=== PATIENT | female | born 1960 | race African-American/Black ===

== ENCOUNTER 2016-11-28 16:59 | Inpatient (IN) | payer MEDICAID ==
[~2016-11-28] VITALS: Ht 172.7 cm; Wt 64.4 kg
[~2016-11-28 16:59] MED LIST: NICO1PAT15 TP
[2016-11-28] MEDS ORDERED: SODIUM CHLORIDE 0.9% 1,000 ML IV ONE ×2 (17:20→18:49)
[2016-11-28 18:08] LABS: BASOPHILS % 0.6 % (0.0-2.0); EOSINOPHILS % 1.7 % (0.0-5.0); HEMATOCRIT. 37.3 % (36.0-48.0); HEMOGLOBIN. 12.7 g/dL (12.0-16.0); LYMPHOCYTES % 44.8 % (20.0-50.0); MEAN CORPUSCULAR HEMOGLOBIN 33.1 pg (28.0-32.0); MEAN CORPUSCULAR VOLUME 97.3 fL (81.0-99.0); NEUTROPHILS % 45.9 % (40.0-76.0); PLATELET 263 x1000/uL (130-400); RED BLOOD CELL COUNT 3.83 mill/uL (4.2-5.4); RED CELL DISTRIBUTION WIDTH 15.3 % (11.6-14.6)
[2016-11-28 18:15] LABS: CHLORIDE 107 mEq/L (98-107)
[2016-11-28 18:17] LABS: CARBON DIOXIDE 23 mEq/L (21-32)
[2016-11-28 18:18] LABS: INR 1.1; PROTHROMBIN TIME 11.2 sec (9.4-11.6)
[2016-11-28 18:23] LABS: CREATINE KINASE 91 IU/L (26-192); TROPONIN I < 0.02 ng/mL (0.00-0.04)
[2016-11-28 19:05] LABS: ETHANOL BLOOD 226 mg/dL
[2016-11-28 22:08] VITALS: BP 139/70
[2016-11-28 22:44] VITALS: BP 139/70
[2016-11-28 23:56] LABS: CREATINE KINASE MB FRACTION 0.9 ng/mL (0.5-3.6); TROPONIN I < 0.02 ng/mL (0.00-0.04)
[2016-11-29] VITALS (8 sets, daily range): BP systolic 101–162; BP diastolic 65–111
[2016-11-29 06:42] LABS: CLARITY URINE CLEAR (CLEAR); COLOR URINE YELLOW (YELLOW); GLUCOSE URINE NEGATIVE (NEGATIVE); KETONES URINE NEGATIVE (NEGATIVE); LEUKOCYTE ESTERASE URINE NEGATIVE (NEGATIVE); NITRITE URINE NEGATIVE (NEGATIVE); OCCULT BLOOD URINE NEGATIVE (NEGATIVE); PROTEIN URINE NEGATIVE (NEGATIVE); SPECIFIC GRAVITY URINE 1.006 (1.005-1.030); UROBILINOGEN URINE 0.2 E.U./dL (0.2-1.0)
[2016-11-29 06:57] LABS: *AMPHETAMINES SCREEN URINE NEGATIVE (NEGATIVE); *BARBITURATES SCREEN URINE NEGATIVE (NEGATIVE); *BENZODIAZEPINES SCREEN URINE NEGATIVE (NEGATIVE); *COCAINE SCREEN URINE NEGATIVE (NEGATIVE); CANNABINOID URINE SCREEN PRESUMTIVE POSITIVE (NEGATIVE); METHADONE URINE SCREEN NEGATIVE (NEGATIVE); OPIATES URINE SCREEN NEGATIVE (NEGATIVE); PHENCYCLIDINE URINE SCREEN NEGATIVE (NEGATIVE)
[2016-11-29 09:14] LABS: BASOPHILS % 1.3 % (0.0-2.0); EOSINOPHILS % 0.9 % (0.0-5.0); HEMATOCRIT. 38.9 % (36.0-48.0); HEMOGLOBIN. 13.1 g/dL (12.0-16.0); LYMPHOCYTES % 29.6 % (20.0-50.0); MEAN CORPUSCULAR HEMOGLOBIN 32.5 pg (28.0-32.0); MEAN CORPUSCULAR VOLUME 96.8 fL (81.0-99.0); MEAN PLATELET VOLUME 8.6 fl (7.4-10.4); MONOCYTES % 6.9 % (2.0-8.0); NEUTROPHILS % 61.3 % (40.0-76.0); PLATELET 238 x1000/uL (130-400); RED BLOOD CELL COUNT 4.02 mill/uL (4.2-5.4); RED CELL DISTRIBUTION WIDTH 14.7 % (11.6-14.6)
[2016-11-29 09:39] LABS: CARBON DIOXIDE 26 mEq/L (21-32); CHLORIDE 104 mEq/L (98-107); CREATINE KINASE MB FRACTION 0.9 ng/mL (0.5-3.6); TROPONIN I < 0.02 ng/mL (0.00-0.04)
[2016-11-29] MEDS ORDERED: FOLI-43 PO (10:17)
[2016-11-29] MEDS ORDERED: CYAN10009 PO (10:18)
[2016-11-29] MEDS ORDERED: LORAZEPAM 0.5MG TABLET PO PRN (14:30)
[2016-11-29] MEDS ORDERED: ACETAMINOPHEN 325MG TABLET PO PRN (14:30)
[2016-11-29] MEDS ORDERED: DOCUSATE SODIUM 100MG CAPSULE PO PRN (14:30)
[2016-11-29] MEDS ORDERED: IPRATROPIUM/ALBUTEROL 0.5-3(2.5)MG/3ML NEB INH PRN (14:30)
[2016-11-29] MEDS ORDERED: CLONIDINE 0.1MG TABLET PO PRN (14:30)
[2016-11-29] MEDS ORDERED: ONDANSETRON HCL 4MG/2ML VIAL IV PRN (14:30)
[2016-11-29] MEDS ORDERED: HYDROCODONE/ACETAMINOPHEN 5/325MG TABLET PO PRN (14:30)
[2016-11-29] MEDS ORDERED: MAGNESIUM/ALUMINUM HYDROXIDE/SIMETHICONE 30ML UDC PO PRN (14:30)
[2016-11-29 15:54] LABS: HEPATITIS B SURFACE ANTIGEN NEGATIVE
[2016-11-29 16:22] LABS: HEPATITIS B CORE AB IGM NEGATIVE
[2016-11-29 16:24] LABS: HEPATITIS A AB IGM NEGATIVE (NEGATIVE)
[2016-11-29] MEDS ORDERED: MVI, ADULT NO.1 10 ML, FOLIC ACID 1 MG, THIAMINE HCL 100 MG in SODIUM CHLORIDE 0.9% 1,0... IV NR ×4 (16:30)
[2016-11-29 16:50] LABS: CARBON DIOXIDE 29 mEq/L (21-32); CHLORIDE 103 mEq/L (98-107)
[2016-11-29] MEDS: NICOTINE 21MG PATCH TD SCH (17:15)
[2016-11-29] MEDS: SODIUM CHLORIDE 0.9% INJ 3ML FLUSH IVF SCH ×2 (18:09→21:41)
[2016-11-29 22:03] LABS: CREATINE KINASE 115 IU/L (26-192); CREATINE KINASE MB FRACTION 1.3 ng/mL (0.5-3.6); TROPONIN I < 0.02 ng/mL (0.00-0.04)
[2016-11-30] VITALS: BP 112/79
[2016-11-30 04:00] VITALS: BP 108/76
[2016-11-30] MEDS: SODIUM CHLORIDE 0.9% INJ 3ML FLUSH IVF SCH ×3 (05:05→21:20)
[2016-11-30 08:00] VITALS: BP_SYST 111; BP_SYST 118; BP_SYST 135; BP_DIAS 81; BP_DIAS 85
[2016-11-30 08:51] LABS: BASOPHILS % 0.5 % (0.0-2.0); HEMATOCRIT. 37.9 % (36.0-48.0); HEMOGLOBIN. 12.9 g/dL (12.0-16.0); LYMPHOCYTES % 29.9 % (20.0-50.0); MEAN CORPUSCULAR HEMOGLOBIN 32.9 pg (28.0-32.0); MEAN CORPUSCULAR VOLUME 96.5 fL (81.0-99.0); MEAN PLATELET VOLUME 8.5 fl (7.4-10.4); MONOCYTES % 9.3 % (2.0-8.0); NEUTROPHILS % 59.3 % (40.0-76.0); PLATELET 217 x1000/uL (130-400); RED BLOOD CELL COUNT 3.93 mill/uL (4.2-5.4); RED CELL DISTRIBUTION WIDTH 14.6 % (11.6-14.6)
[2016-11-30] MEDS: MULTIVITAMINS,THER W-MINERALS TABLET PO SCH (08:56)
[2016-11-30] MEDS: THIAMINE HCL 100MG TABLET PO SCH (08:57)
[2016-11-30] MEDS: FOLIC ACID 1MG TABLET PO SCH (08:57)
[2016-11-30] MEDS: NICOTINE 21MG PATCH TD SCH (08:57)
[2016-11-30] MEDS: CYANOCOBALAMIN 1000MCG TABLET PO SCH (08:57)
[2016-11-30 09:24] LABS: CREATINE KINASE 113 IU/L (26-192); LDL CHOLESTEROL 121 mg/dL (5-100); TROPONIN I < 0.02 ng/mL (0.00-0.04)
[2016-11-30 09:25] LABS: CREATINE KINASE MB FRACTION 1.3 ng/mL (0.5-3.6); HDL CHOLESTEROL 32 mg/dL (40-59)
[2016-11-30 12:00] VITALS: BP 126/77
[2016-11-30] MEDS: SODIUM CHLORIDE 0.9% 1,000 ML IV SCH ×2 (14:51→23:19)
[2016-11-30 20:00] VITALS: BP 128/82
[2016-12-01] VITALS: BP 132/84
[2016-12-01 04:00] VITALS: BP 105/68
[2016-12-01] MEDS: SODIUM CHLORIDE 0.9% INJ 3ML FLUSH IVF SCH ×2 (06:03→13:18)
[2016-12-01 07:03] LABS: BASOPHILS % 0.6 % (0.0-2.0); EOSINOPHILS % 2.4 % (0.0-5.0); HEMATOCRIT. 33.2 % (36.0-48.0); HEMOGLOBIN. 11.2 g/dL (12.0-16.0); LYMPHOCYTES % 40.4 % (20.0-50.0); MEAN CORPUSCULAR HEMOGLOBIN 32.9 pg (28.0-32.0); MEAN CORPUSCULAR VOLUME 97.3 fL (81.0-99.0); NEUTROPHILS % 48.6 % (40.0-76.0); PLATELET 187 x1000/uL (130-400); RED BLOOD CELL COUNT 3.41 mill/uL (4.2-5.4); RED CELL DISTRIBUTION WIDTH 14.4 % (11.6-14.6)
[2016-12-01 07:36] LABS: CHLORIDE 110 mEq/L (98-107)
[2016-12-01 07:47] LABS: CARBON DIOXIDE 25 mEq/L (21-32)
[2016-12-01 08:00] VITALS: BP 131/84
[2016-12-01] MEDS: THIAMINE HCL 100MG TABLET PO SCH (09:41)
[2016-12-01] MEDS: MULTIVITAMINS,THER W-MINERALS TABLET PO SCH (09:41)
[2016-12-01] MEDS: NICOTINE 21MG PATCH TD SCH (09:41)
[2016-12-01] MEDS: FOLIC ACID 1MG TABLET PO SCH (09:41)
[2016-12-01] MEDS: CYANOCOBALAMIN 1000MCG TABLET PO SCH (09:41)
[2016-12-01] MEDS ORDERED: POTASSIUM CHLORIDE 20MEQ TABLET SR PO SCH (11:00)
[2016-12-01] MEDS: SODIUM CHLORIDE 0.9% 1,000 ML IV SCH (11:34)
[2016-12-01] MEDS ORDERED: FOLI-43 PO (11:40)
[2016-12-01] MEDS ORDERED: MULT-1146 PO (11:40)
[2016-12-01] MEDS ORDERED: THIA100T72 PO (11:40)
[2016-12-01 12:00] VITALS: BP 142/96
[2016-12-01] MEDS: MAGNESIUM 1 G PREMIX 100 ML IV SCH ×2 (13:18→13:59)
[2016-12-01] MEDS ORDERED: MAGNESIUM OXIDE 400MG TABLET PO SCH (14:00)
[2016-12-01 15:49] VITALS: BP 131/84
[2016-12-01 16:00] VITALS: BP 132/86
== END 2016-12-01 16:55 | disposition home or self-care (01) | DRG 720 ==
LOC: ER 17:07 → 5WST 19:09 → EDBEDREQTM 19:10 → EDBEDREQ 19:10 → ENRESERV 20:52
PROVIDERS: ADMIT Internal Medicine; ATTEND Internal Medicine
DX: A41.9 Sepsis, unspecified organism (principal); E87.2 Acidosis; F10.129 Alcohol abuse with intoxication, unspecified; E44.1 Mild protein-calorie malnutrition; I10 Essential (primary) hypertension; F12.90 Cannabis use, unspecified, uncomplicated; E86.0 Dehydration; F17.210 Nicotine dependence, cigarettes, uncomplicated; I95.1 Orthostatic hypotension; K70.9 Alcoholic liver disease, unspecified; Y90.8 Blood alcohol level of 240 mg/100 ml or more; Z79.899 Other long term (current) drug therapy; I25.2 Old myocardial infarction; Z71.41 Alcohol abuse counseling and surveillance of alcoholic; Z71.6 Tobacco abuse counseling; Z68.21 Body mass index [BMI] 21.0-21.9, adult; G62.9 Polyneuropathy, unspecified
CPT/HCPCS: 36415; 70450; 71010; 80048; 80053; 80061; 80076; 80305; 81003; 82550; 82553; 83605; 83690; 83735; 84443; 84484; 85025; 85610; 86705; 86709; 86803; 87040; 87340; 93005; 93306; 93880; 93970; 96360; 99285; G0482; J3411; J3475; J3490; J7030

== ENCOUNTER 2019-01-27 18:13 | Inpatient (IN) | payer MEDICAID ==
[~2019-01-27] VITALS: Ht 162.6 cm; Wt 60.8 kg
[~2019-01-27 18:13] MED LIST changes: +CYAN-50 PO; +FOLI-43 PO; +MULT-1146 PO; +THIA100T72 PO
[2019-01-27] MEDS ORDERED: KETOROLAC 30MG/ML VIAL IV STA (19:38)
[2019-01-27 20:28] LABS: BASOPHILS % 1.2 % (0.0-2.0); EOSINOPHILS % 0.3 % (0.0-5.0); HEMATOCRIT. 36.2 % (36.0-48.0); LYMPHOCYTES % 32.8 % (20.0-50.0); MEAN CORPUSCULAR HEMOGLOBIN 33.5 pg (28.0-32.0); MEAN CORPUSCULAR VOLUME 100.6 fL (81.0-99.0); MEAN PLATELET VOLUME 9.1 fl (7.4-10.4); MONOCYTES % 5.9 % (2.0-8.0); NEUTROPHILS % 59.8 % (40.0-76.0); PLATELET 264 x1000/uL (130-400); RED BLOOD CELL COUNT 3.59 mill/uL (4.2-5.4); RED CELL DISTRIBUTION WIDTH 15.8 % (11.6-14.6)
[2019-01-27 20:31] LABS: CHLORIDE 102 mEq/L (98-107)
[2019-01-28] VITALS (7 sets, daily range): BP systolic 104–147; BP diastolic 53–93
[2019-01-28] MEDS ORDERED: CLONIDINE 0.1MG TABLET PO PRN (08:45)
[2019-01-28] MEDS ORDERED: MAGNESIUM/ALUMINUM HYDROXIDE/SIMETHICONE 30ML UDC PO PRN (08:45)
[2019-01-28] MEDS ORDERED: DIPHENHYDRAMINE 50MG/ML VIAL IV PRN (08:45)
[2019-01-28] MEDS ORDERED: ONDANSETRON HCL 4MG/2ML INJ IV PRN (08:45)
[2019-01-28] MEDS ORDERED: GUAIFENESIN 200MG/10ML SUGAR FREE UDC PO PRN (08:45)
[2019-01-28] MEDS ORDERED: DOCUSATE SODIUM 100MG CAPSULE PO PRN (08:45)
[2019-01-28] MEDS ORDERED: IPRATROPIUM/ALBUTEROL 0.5-3(2.5)MG/3ML NEB HHN PRN (08:45)
[2019-01-28] MEDS ORDERED: PNEUMOCOCCAL 23-VAL P-SAC VAC 0.5 ML IM ONE (09:00)
[2019-01-28 10:57] LABS: PHOSPHORUS 2.3 mg/dL (2.5-4.9)
[2019-01-28] MEDS: ENOXAPARIN 40MG/0.4ML SYR SUBCUT SCH (12:10)
[2019-01-28] MEDS: SODIUM CHLORIDE 0.9% 1,000 ML IV SCH (12:11)
[2019-01-28] MEDS: KETOROLAC 30MG/ML VIAL IV PRN (15:13)
[2019-01-28] MEDS: OMEPRAZOLE 20MG CAPSULE EXTENDED RELEASE PO SCH (20:33)
[2019-01-28 21:45] LABS: VITAMIN B12 SERUM 931 pg/mL (211-911)
[2019-01-29 00:01] VITALS: BP 119/78
[2019-01-29] MEDS: SODIUM CHLORIDE 0.9% 1,000 ML IV SCH ×2 (01:15→17:55)
[2019-01-29 04:00] VITALS: BP 152/72
[2019-01-29] MEDS: OMEPRAZOLE 20MG CAPSULE EXTENDED RELEASE PO SCH ×2 (06:25→21:49)
[2019-01-29 06:40] LABS: BASOPHILS % 0.8 % (0.0-2.0); EOSINOPHILS % 0.2 % (0.0-5.0); HEMATOCRIT. 31.4 % (36.0-48.0); HEMOGLOBIN. 10.4 g/dL (12.0-16.0); LYMPHOCYTES % 29.9 % (20.0-50.0); MEAN CORPUSCULAR HEMOGLOBIN 33.2 pg (28.0-32.0); MEAN CORPUSCULAR VOLUME 99.9 fL (81.0-99.0); MEAN PLATELET VOLUME 8.5 fl (7.4-10.4); MONOCYTES % 7.2 % (2.0-8.0); NEUTROPHILS % 61.9 % (40.0-76.0); PLATELET 261 x1000/uL (130-400); RED BLOOD CELL COUNT 3.14 mill/uL (4.2-5.4); RED CELL DISTRIBUTION WIDTH 15.4 % (11.6-14.6)
[2019-01-29 07:18] LABS: CHLORIDE 106 mEq/L (98-107)
[2019-01-29 07:53] LABS: LDL CHOLESTEROL 92 mg/dL (5-100)
[2019-01-29 07:54] LABS: HDL CHOLESTEROL 33 mg/dL (40-59)
[2019-01-29 08:00] VITALS: BP 137/99
[2019-01-29] MEDS: ENOXAPARIN 40MG/0.4ML SYR SUBCUT SCH (08:57)
[2019-01-29 12:00] VITALS: BP 131/79
[2019-01-29] MEDS: METOCLOPRAMIDE HCL 10MG/2ML VIAL IV SCH ×2 (14:06→18:17)
[2019-01-29] MEDS: KETOROLAC 30MG/ML VIAL IV PRN (14:17)
[2019-01-29 16:00] VITALS: BP 131/79
[2019-01-29 20:00] VITALS: BP 126/89
[2019-01-30] VITALS: BP 121/83
[2019-01-30] MEDS: ACETAMINOPHEN 325MG TABLET PO PRN ×2 (00:57→01:12)
[2019-01-30] MEDS: METOCLOPRAMIDE HCL 10MG/2ML VIAL IV SCH ×4 (01:12→17:08)
[2019-01-30 04:00] VITALS: BP 142/90
[2019-01-30] MEDS: OMEPRAZOLE 20MG CAPSULE EXTENDED RELEASE PO SCH ×2 (05:47→20:57)
[2019-01-30 06:28] LABS: CHLORIDE 104 mEq/L (98-107)
[2019-01-30 06:36] LABS: BASOPHILS % 0.4 % (0.0-2.0); EOSINOPHILS % 0.4 % (0.0-5.0); HEMATOCRIT. 30.4 % (36.0-48.0); HEMOGLOBIN. 10.3 g/dL (12.0-16.0); LYMPHOCYTES % 31.3 % (20.0-50.0); MEAN CORPUSCULAR HEMOGLOBIN 33.7 pg (28.0-32.0); MEAN PLATELET VOLUME 8.7 fl (7.4-10.4); MONOCYTES % 5.7 % (2.0-8.0); NEUTROPHILS % 62.2 % (40.0-76.0); PLATELET 266 x1000/uL (130-400); RED BLOOD CELL COUNT 3.04 mill/uL (4.2-5.4); RED CELL DISTRIBUTION WIDTH 15.5 % (11.6-14.6)
[2019-01-30 08:00] VITALS: BP 127/91
[2019-01-30] MEDS: ENOXAPARIN 40MG/0.4ML SYR SUBCUT SCH (08:19)
[2019-01-30] MEDS: SODIUM CHLORIDE 0.9% 1,000 ML IV SCH ×2 (10:35→22:35)
[2019-01-30 12:00] VITALS: BP 119/81
[2019-01-30 16:00] VITALS: BP 111/69
[2019-01-30 20:00] VITALS: BP 134/93
[2019-01-30] MEDS: KETOROLAC 30MG/ML VIAL IV PRN (21:43)
[2019-01-31] VITALS: BP 145/97
[2019-01-31] MEDS: METOCLOPRAMIDE HCL 10MG/2ML VIAL IV SCH ×3 (00:31→11:00)
[2019-01-31 04:00] VITALS: BP 135/93
[2019-01-31] MEDS: OMEPRAZOLE 20MG CAPSULE EXTENDED RELEASE PO SCH (06:16)
[2019-01-31 06:30] LABS: CHLORIDE 106 mEq/L (98-107)
[2019-01-31 06:43] LABS: BASOPHILS % 0.4 % (0.0-2.0); EOSINOPHILS % 0.5 % (0.0-5.0); HEMATOCRIT. 31.6 % (36.0-48.0); HEMOGLOBIN. 10.4 g/dL (12.0-16.0); LYMPHOCYTES % 34.1 % (20.0-50.0); MEAN CORPUSCULAR HEMOGLOBIN 33.2 pg (28.0-32.0); MEAN CORPUSCULAR VOLUME 101.2 fL (81.0-99.0); MEAN PLATELET VOLUME 8.8 fl (7.4-10.4); MONOCYTES % 6.8 % (2.0-8.0); NEUTROPHILS % 58.2 % (40.0-76.0); PLATELET 261 x1000/uL (130-400); RED BLOOD CELL COUNT 3.13 mill/uL (4.2-5.4); RED CELL DISTRIBUTION WIDTH 15.6 % (11.6-14.6)
[2019-01-31 07:18] LABS: HEPATITIS B SURFACE ANTIGEN NEGATIVE
[2019-01-31 07:47] LABS: HEPATITIS A AB IGM NEGATIVE (NEGATIVE)
[2019-01-31 08:00] VITALS: BP 143/82
[2019-01-31] MEDS: ENOXAPARIN 40MG/0.4ML SYR SUBCUT SCH (11:00)
[2019-01-31 12:00] VITALS: BP 116/48
[2019-01-31] MEDS ORDERED: OMEP20CA5 PO (13:56)
[2019-01-31] MEDS ORDERED: ONDA4TAB11 PO (14:01)
[2019-01-31 14:05] VITALS: BP 116/48
== END 2019-01-31 15:44 | disposition home or self-care (01) | DRG 249 ==
LOC: ER 18:13 → 8WST 21:02 → ENRESERV 22:30
PROVIDERS: ADMIT Internal Medicine; ATTEND Internal Medicine
DX: K52.9 Noninfective gastroenteritis and colitis, unspecified (principal); K70.9 Alcoholic liver disease, unspecified; E83.39 Other disorders of phosphorus metabolism; E11.9 Type 2 diabetes mellitus without complications; D75.89 Other specified diseases of blood and blood-forming organs; F17.200 Nicotine dependence, unspecified, uncomplicated; F10.10 Alcohol abuse, uncomplicated; K76.0 Fatty (change of) liver, not elsewhere classified; R07.9 Chest pain, unspecified; R74.0 Nonspecific elevation of levels of transaminase and lactic acid dehydrogenase [LDH]; Z79.899 Other long term (current) drug therapy; Z87.19 Personal history of other diseases of the digestive system
CPT/HCPCS: 36415; 71045; 74018; 76705; 80048; 80061; 80076; 82248; 82607; 83735; 83880; 84100; 84443; 84484; 86705; 86709; 86803; 87015; 87045; 87340; 87427; 87449; 89055; 93005; 93970; 96374; 99285; J1650; J1885; J2765; J7030

== ENCOUNTER 2021-01-23 06:53 | Inpatient (IN) | payer OTHER ==
[~2021-01-23] VITALS: Ht 172.7 cm; Wt 108.4 kg
[~2021-01-23 06:53] MED LIST changes: +OMEP20CA14 PO; +ONDA4TAB11 PO
[2021-01-23] MEDS ORDERED: ACETAMINOPHEN WITH CODEINE 300/30MG TABLET PO STA (07:22)
[2021-01-23 09:34] LABS: BASOPHILS % 0.3 % (0.0-2.0); EOSINOPHILS % 0.3 % (0.0-5.0); HEMATOCRIT. 30.1 % (36.0-48.0); HEMOGLOBIN. 9.8 g/dL (12.0-16.0); LYMPHOCYTES % 25.7 % (20.0-50.0); MEAN CORPUSCULAR HEMOGLOBIN 31.1 pg (28.0-32.0); MEAN CORPUSCULAR VOLUME 95.2 fL (81.0-99.0); MEAN PLATELET VOLUME 8.4 fl (7.4-10.4); MONOCYTES % 9.9 % (2.0-8.0); NEUTROPHILS % 63.8 % (40.0-76.0); PLATELET 415 x1000/uL (130-400); RED BLOOD CELL COUNT 3.16 mill/uL (4.2-5.4); RED CELL DISTRIBUTION WIDTH 16.2 % (11.6-14.6)
[2021-01-23 10:36] LABS: CHLORIDE 112 mEq/L (98-107)
[2021-01-23] MEDS ORDERED: ALBUTEROL (0.083%) 2.5MG/3ML NEB HHN ONE (11:15)
[2021-01-23] MEDS ORDERED: CALCIUM CHLORIDE 1GM/10ML SYR IV ONE (11:15)
[2021-01-23] MEDS ORDERED: SODIUM BICARBONATE 8.4% 1 MEQ/ML 50ML SYR IV ONE (11:15)
[2021-01-23] MEDS ORDERED: DEXTROSE 50% WATER 50ML SYRINGE IV ONE ×2 (11:15→13:00)
[2021-01-23] MEDS ORDERED: INSULIN REGULAR (HUMULIN R) 300UNITS/3ML VIAL IV ONE (11:15)
[2021-01-23 11:19] LABS: CLARITY URINE CLEAR (CLEAR); COLOR URINE YELLOW (YELLOW); KETONES URINE NEGATIVE (NEGATIVE); LEUKOCYTE ESTERASE URINE NEGATIVE (NEGATIVE); NITRITE URINE NEGATIVE (NEGATIVE); OCCULT BLOOD URINE NEGATIVE (NEGATIVE); PROTEIN URINE NEGATIVE (NEGATIVE); SPECIFIC GRAVITY URINE 1.008 (1.005-1.030); UROBILINOGEN URINE 0.2 E.U./dL (0.2-1.0)
[2021-01-23 19:33] LABS: CHLORIDE 110 mEq/L (98-107)
[2021-01-24 08:50] VITALS: BP 133/52
[2021-01-24] MEDS ORDERED: ATOR40TA70 MT (09:34)
[2021-01-24] MEDS ORDERED: OMEP40CA20 MT (09:34)
[2021-01-24] MEDS ORDERED: PANT40TA51 MT (09:34)
[2021-01-24] MEDS ORDERED: IPRATROPIUM/ALBUTEROL 0.5-3(2.5)MG/3ML NEB HHN PRN (09:45)
[2021-01-24] MEDS ORDERED: LORAZEPAM 0.5MG TABLET PO PRN (09:45)
[2021-01-24] MEDS ORDERED: ACETAMINOPHEN 325MG TABLET PO PRN ×2 (09:45)
[2021-01-24] MEDS ORDERED: CLONIDINE 0.1MG TABLET PO PRN (09:45)
[2021-01-24] MEDS ORDERED: HYDROCODONE/ACETAMINOPHEN 5/325MG TABLET PO PRN (09:45)
[2021-01-24] MEDS ORDERED: ONDANSETRON HCL 4MG/2ML INJ IV PRN (09:45)
[2021-01-24] MEDS ORDERED: DOCUSATE SODIUM 100MG CAPSULE PO PRN (09:45)
[2021-01-24 11:42] VITALS: BP 122/65
[2021-01-24] MEDS ORDERED: *PATIENT'S OWN MEDICATION STORAGE XX SCH (15:15)
[2021-01-24 16:14] VITALS: BP 125/68
[2021-01-24] MEDS ORDERED: OMEPRAZOLE 20MG CAPSULE EXTENDED RELEASE PO SCH (19:30)
[2021-01-24 20:27] LABS: CHLORIDE 108 mEq/L (98-107)
[2021-01-24 20:32] LABS: TOTAL IRON BINDING CAPACITY 416 ug/dL (250-450)
[2021-01-24 20:33] LABS: PHOSPHORUS 3.6 mg/dL (2.5-4.9)
[2021-01-24 20:38] LABS: T4 FREE 1.02 ng/dL (0.76-1.46)
[2021-01-24 20:49] LABS: FERRITIN 10 ng/mL (10-291)
[2021-01-24 21:00] LABS: VITAMIN B12 SERUM 407 pg/mL (211-911)
[2021-01-24] MEDS: PANTOPRAZOLE 40MG DR TABLET PO SCH (21:16)
[2021-01-24 21:17] LABS: FOLIC ACID (FOLATE) SERUM > 20.00 ng/mL (>5.38)
[2021-01-24] MEDS: MULTIVITAMINS,THER W-MINERALS TABLET PO SCH (21:17)
[2021-01-24] MEDS: CYANOCOBALAMIN 1000MCG TABLET PO SCH (21:17)
[2021-01-24] MEDS: FOLIC ACID 1MG TABLET PO SCH (21:17)
[2021-01-24] MEDS: THIAMINE HCL 100MG TABLET PO SCH (21:17)
[2021-01-24] MEDS: POLYETHYLENE GLYCOL 3350 (17GM) 1 DOSE PACK PO SCH (21:17)
[2021-01-24] MEDS ORDERED: NALOXONE HCL 0.4MG/ML VIAL IV PRN (22:00)
[2021-01-25] VITALS: BP_SYST 117; BP_SYST 126; BP_DIAS 72; BP_DIAS 77
[2021-01-25 04:00] VITALS: BP 115/67
[2021-01-25 07:38] LABS: CHLORIDE 109 mEq/L (98-107)
[2021-01-25 08:00] VITALS: BP 123/80
[2021-01-25] MEDS: FOLIC ACID 1MG TABLET PO SCH (08:53)
[2021-01-25] MEDS: MULTIVITAMINS,THER W-MINERALS TABLET PO SCH (08:53)
[2021-01-25] MEDS: CYANOCOBALAMIN 1000MCG TABLET PO SCH (08:53)
[2021-01-25] MEDS: PANTOPRAZOLE 40MG DR TABLET PO SCH (08:53)
[2021-01-25] MEDS: THIAMINE HCL 100MG TABLET PO SCH (08:53)
[2021-01-25] MEDS: POLYETHYLENE GLYCOL 3350 (17GM) 1 DOSE PACK PO SCH (08:55)
[2021-01-25] MEDS ORDERED: NICOTINE 14MG PATCH TD SCH (09:00)
[2021-01-25] MEDS ORDERED: IRON SUCROSE COMPLEX 100 MG/5 ML ML IV SCH (11:00)
[2021-01-25 12:00] VITALS: BP 124/82
[2021-01-25 15:36] LABS: BASOPHILS % 1.3 % (0.0-2.0); HEMATOCRIT. 30.7 % (36.0-48.0); HEMOGLOBIN. 9.6 g/dL (12.0-16.0); LYMPHOCYTES % 27.8 % (20.0-50.0); MEAN CORPUSCULAR HEMOGLOBIN 30.6 pg (28.0-32.0); MEAN CORPUSCULAR VOLUME 98.2 fL (81.0-99.0); MEAN PLATELET VOLUME 8.6 fl (7.4-10.4); MONOCYTES % 8.2 % (2.0-8.0); NEUTROPHILS % 61.7 % (40.0-76.0); PLATELET 395 x1000/uL (130-400); RED BLOOD CELL COUNT 3.13 mill/uL (4.2-5.4); RED CELL DISTRIBUTION WIDTH 16.2 % (11.6-14.6)
[2021-01-25 16:00] VITALS: BP 126/70
[2021-01-25 16:00] LABS: CLARITY URINE CLEAR (CLEAR); COLOR URINE YELLOW (YELLOW); KETONES URINE TRACE (NEGATIVE); LEUKOCYTE ESTERASE URINE NEGATIVE (NEGATIVE); NITRITE URINE NEGATIVE (NEGATIVE); OCCULT BLOOD URINE NEGATIVE (NEGATIVE); PH URINE 6.5 (4.5-8.0); PROTEIN URINE NEGATIVE (NEGATIVE); SPECIFIC GRAVITY URINE 1.017 (1.005-1.030); UROBILINOGEN URINE 0.2 E.U./dL (0.2-1.0)
[2021-01-25] MEDS ORDERED: FERR325T6 MT (16:08)
[2021-01-25 16:18] LABS: *AMPHETAMINES SCREEN URINE NEGATIVE (NEGATIVE); *BARBITURATES SCREEN URINE NEGATIVE (NEGATIVE); *BENZODIAZEPINES SCREEN URINE NEGATIVE (NEGATIVE); *COCAINE SCREEN URINE NEGATIVE (NEGATIVE); METHADONE URINE SCREEN NEGATIVE (NEGATIVE); OPIATES URINE SCREEN PRESUMTIVE POSITIVE (NEGATIVE)
[2021-01-25 16:19] LABS: CANNABINOID URINE SCREEN PRESUMTIVE POSITIVE (NEGATIVE); PHENCYCLIDINE URINE SCREEN NEGATIVE (NEGATIVE)
[2021-01-25 16:24] VITALS: BP 126/70
== END 2021-01-25 18:20 | disposition home or self-care (01) | DRG 425 ==
LOC: ER 06:53 → MICUSO 15:34 → EDBEDREQ 16:14 → 6WST 01-24 08:51
PROVIDERS: ADMIT Internal Medicine; ATTEND Internal Medicine
DX: E87.5 Hyperkalemia (principal); E11.649 Type 2 diabetes mellitus with hypoglycemia without coma; E11.40 Type 2 diabetes mellitus with diabetic neuropathy, unspecified; D64.9 Anemia, unspecified; E66.01 Morbid (severe) obesity due to excess calories; E78.5 Hyperlipidemia, unspecified; R74.01 Elevation of levels of liver transaminase levels; K76.0 Fatty (change of) liver, not elsewhere classified; E83.52 Hypercalcemia; F10.10 Alcohol abuse, uncomplicated; G89.29 Other chronic pain; I10 Essential (primary) hypertension; M48.061 Spinal stenosis, lumbar region without neurogenic claudication; Z82.49 Family history of ischemic heart disease and other diseases of the circulatory system; Z83.3 Family history of diabetes mellitus; Z79.899 Other long term (current) drug therapy; Z71.3 Dietary counseling and surveillance; Z68.36 Body mass index [BMI] 36.0-36.9, adult
CPT/HCPCS: 36415; 70551; 72141; 72146; 72148; 80048; 80053; 80305; 81003; 82330; 82607; 82728; 82746; 82962; 83036; 83540; 83550; 83735; 83970; 84100; 84133; 84439; 84443; 84481; 85025; 99291; C1893; J1815; J3490

== ENCOUNTER 2021-02-26 21:06 | Emergency (ER) | payer OTHER ==
[~2021-02-26] VITALS: Ht 167.6 cm; Wt 50.0 kg
[~2021-02-26 21:06] MED LIST changes: +FERR325T6 MT; -OMEP20CA14 PO; +PANT40TA51 MT
[2021-02-26 22:36] LABS: BASOPHILS % 0.3 % (0.0-2.0); EOSINOPHILS % 0.3 % (0.0-5.0); HEMATOCRIT. 37.7 % (36.0-48.0); HEMOGLOBIN. 11.8 g/dL (12.0-16.0); LYMPHOCYTES % 24.4 % (20.0-50.0); MEAN CORPUSCULAR HEMOGLOBIN 30.9 pg (28.0-32.0); MEAN CORPUSCULAR VOLUME 98.6 fL (81.0-99.0); MONOCYTES % 3.2 % (2.0-8.0); NEUTROPHILS % 71.8 % (40.0-76.0); PLATELET 302 x1000/uL (130-400); RED BLOOD CELL COUNT 3.83 mill/uL (4.2-5.4); RED CELL DISTRIBUTION WIDTH 18.2 % (11.6-14.6)
[2021-02-26 22:43] LABS: CHLORIDE 111 mEq/L (98-107)
[2021-02-26 22:54] LABS: CLARITY URINE CLEAR (CLEAR); COLOR URINE YELLOW (YELLOW); KETONES URINE NEGATIVE (NEGATIVE); LEUKOCYTE ESTERASE URINE NEGATIVE (NEGATIVE); NITRITE URINE NEGATIVE (NEGATIVE); OCCULT BLOOD URINE NEGATIVE (NEGATIVE); PROTEIN URINE NEGATIVE (NEGATIVE); SPECIFIC GRAVITY URINE 1.007 (1.005-1.030); UROBILINOGEN URINE 0.2 E.U./dL (0.2-1.0)
[2021-02-26 23:08] LABS: *BARBITURATES SCREEN URINE NEGATIVE (NEGATIVE)
[2021-02-26 23:09] LABS: *AMPHETAMINES SCREEN URINE NEGATIVE (NEGATIVE); *BENZODIAZEPINES SCREEN URINE NEGATIVE (NEGATIVE); *COCAINE SCREEN URINE NEGATIVE (NEGATIVE); METHADONE URINE SCREEN NEGATIVE (NEGATIVE); OPIATES URINE SCREEN NEGATIVE (NEGATIVE); PHENCYCLIDINE URINE SCREEN NEGATIVE (NEGATIVE)
[2021-02-26 23:10] LABS: CANNABINOID URINE SCREEN PRESUMTIVE POSITIVE (NEGATIVE)
[2021-02-27 01:14] VITALS: BP 156/72
== END 2021-02-27 01:39 | disposition home or self-care (01) ==
LOC: ER 21:06
DX: R53.1 Weakness (principal); E11.9 Type 2 diabetes mellitus without complications; I10 Essential (primary) hypertension; K92.2 Gastrointestinal hemorrhage, unspecified; Z79.899 Other long term (current) drug therapy
CPT/HCPCS: 36415; 80053; 80305; 81003; 84484; 85025; 93005; 99285

== ENCOUNTER 2021-05-21 13:12 | Inpatient (IN) | payer OTHER ==
[~2021-05-21] VITALS: Ht 165.1 cm; Wt 59.0 kg
[~2021-05-21 13:12] MED LIST changes: +METF-874 MT
[2021-05-21] MEDS ORDERED: naproxen (13:19)
[2021-05-21] MEDS ORDERED: FAMOTIDINE 20MG/2ML VIAL IV STA (13:23)
[2021-05-21] MEDS ORDERED: ONDANSETRON HCL 4MG/2ML INJ IV STA (13:23)
[2021-05-21] MEDS ORDERED: MORPHINE SULFATE 4 MG/ML CPJ (NOT FOR IM USE) IV STA (13:23)
[2021-05-21] MEDS ORDERED: SODIUM CHLORIDE 0.9% 1,000 ML IV ONE (13:30)
[2021-05-21 14:59] LABS: BASOPHILS % 0.7 % (0.0-2.0); CHLORIDE 88 mEq/L (98-107); EOSINOPHILS % 0.4 % (0.0-5.0); HEMATOCRIT. 30.9 % (36.0-48.0); HEMOGLOBIN. 10.6 g/dL (12.0-16.0); LYMPHOCYTES % 30.2 % (20.0-50.0); MEAN CORPUSCULAR VOLUME 93.1 fL (81.0-99.0); MONOCYTES % 6.3 % (2.0-8.0); NEUTROPHILS % 62.4 % (40.0-76.0); PLATELET 284 x1000/uL (130-400); RED BLOOD CELL COUNT 3.31 mill/uL (4.2-5.4); RED CELL DISTRIBUTION WIDTH 14.9 % (11.6-14.6)
[2021-05-21 15:05] LABS: ETHANOL BLOOD 120 mg/dL
[2021-05-21 19:22] LABS: CHLORIDE 92 mEq/L (98-107)
[2021-05-21] MEDS ORDERED: SODIUM POLYSTYRENE SULFONATE 15 G/60 ML BOT PO ONE (19:45)
[2021-05-21] MEDS ORDERED: MORPHINE SULFATE 4 MG/ML CPJ (NOT FOR IM USE) IV NR (20:30)
[2021-05-22 00:50] VITALS: BP 109/50
[2021-05-22] MEDS ORDERED: MAGNESIUM/ALUMINUM HYDROXIDE/SIMETHICONE 30ML UDC PO PRN (01:45)
[2021-05-22] MEDS ORDERED: GUAIFENESIN 200MG/10ML SUGAR FREE UDC PO PRN (01:45)
[2021-05-22] MEDS ORDERED: ACETAMINOPHEN 650MG SUPP PR PRN ×2 (01:45)
[2021-05-22] MEDS ORDERED: CLONIDINE 0.1MG TABLET PO PRN (01:45)
[2021-05-22] MEDS ORDERED: ACETAMINOPHEN 325MG TABLET PO PRN (01:45)
[2021-05-22] MEDS ORDERED: ONDANSETRON HCL 4MG/2ML INJ IV PRN (01:45)
[2021-05-22] MEDS ORDERED: LORAZEPAM 2MG/ML CPJ IV PRN (01:45)
[2021-05-22] MEDS ORDERED: IPRATROPIUM/ALBUTEROL 0.5-3(2.5)MG/3ML NEB HHN PRN (01:45)
[2021-05-22] MEDS ORDERED: MORPHINE SULFATE 2 MG/ML CPJ (NOT FOR IM USE) IV PRN (01:45)
[2021-05-22] MEDS ORDERED: DOCUSATE SODIUM 100MG CAPSULE PO PRN (01:45)
[2021-05-22] MEDS ORDERED: DIPHENHYDRAMINE 50MG/ML VIAL IV PRN (01:45)
[2021-05-22] MEDS ORDERED: NALOXONE HCL 0.4 MG/ML 1ML VIAL IV PRN (02:00)
[2021-05-22] MEDS: DEXT 5%/0.9% NACL 1,000 ML IV SCH ×2 (02:07→15:12)
[2021-05-22] MEDS ORDERED: CYPR4SYR PO (03:03)
[2021-05-22] MEDS ORDERED: AMYL1CAP59 PO (03:03)
[2021-05-22] MEDS ORDERED: THIA100T72 PO (03:03)
[2021-05-22] MEDS ORDERED: GLIP5TAB12 PO (03:03)
[2021-05-22] MEDS ORDERED: CHOL500051 PO (03:03)
[2021-05-22] MEDS ORDERED: *PATIENT'S OWN MEDICATION STORAGE XX SCH (03:15)
[2021-05-22 04:00] VITALS: BP 93/49
[2021-05-22 08:00] VITALS: BP 82/45
[2021-05-22 08:10] LABS: CLARITY URINE CLEAR (CLEAR); COLOR URINE YELLOW (YELLOW); KETONES URINE NEGATIVE (NEGATIVE); LEUKOCYTE ESTERASE URINE NEGATIVE (NEGATIVE); NITRITE URINE NEGATIVE (NEGATIVE); OCCULT BLOOD URINE NEGATIVE (NEGATIVE); PROTEIN URINE NEGATIVE (NEGATIVE); SPECIFIC GRAVITY URINE 1.007 (1.005-1.030); UROBILINOGEN URINE 0.2 E.U./dL (0.2-1.0)
[2021-05-22 09:20] LABS: *AMPHETAMINES SCREEN URINE NEGATIVE (NEGATIVE); *BARBITURATES SCREEN URINE NEGATIVE (NEGATIVE); CANNABINOID URINE SCREEN NEGATIVE (NEGATIVE)
[2021-05-22 09:22] LABS: *BENZODIAZEPINES SCREEN URINE NEGATIVE (NEGATIVE); *COCAINE SCREEN URINE NEGATIVE (NEGATIVE); METHADONE URINE SCREEN NEGATIVE (NEGATIVE)
[2021-05-22 09:27] LABS: OPIATES URINE SCREEN PRESUMTIVE POSITIVE (NEGATIVE); PHENCYCLIDINE URINE SCREEN NEGATIVE (NEGATIVE)
[2021-05-22 12:00] VITALS: BP 86/42
[2021-05-22 16:00] VITALS: BP 99/51
[2021-05-22 20:00] VITALS: BP 91/45
[2021-05-22] MEDS: ACETAMINOPHEN 325MG TABLET PO PRN (21:04)
[2021-05-23] VITALS: BP 97/50
[2021-05-23 04:00] VITALS: BP_SYST 104; BP_SYST 107; BP_DIAS 46
[2021-05-23] MEDS: DEXT 5%/0.9% NACL 1,000 ML IV SCH ×2 (04:54→17:45)
[2021-05-23] MEDS: ACETAMINOPHEN 325MG TABLET PO PRN (04:54)
[2021-05-23 06:20] LABS: BASOPHILS % 0.6 % (0.0-2.0); EOSINOPHILS % 2.4 % (0.0-5.0); HEMATOCRIT. 22.5 % (36.0-48.0); HEMOGLOBIN. 7.6 g/dL (12.0-16.0); LYMPHOCYTES % 33.4 % (20.0-50.0); MEAN CORPUSCULAR HEMOGLOBIN 31.6 pg (28.0-32.0); MEAN CORPUSCULAR VOLUME 94.1 fL (81.0-99.0); MEAN PLATELET VOLUME 8.1 fl (7.4-10.4); MONOCYTES % 9.1 % (2.0-8.0); NEUTROPHILS % 54.5 % (40.0-76.0); PLATELET 228 x1000/uL (130-400); RED BLOOD CELL COUNT 2.39 mill/uL (4.2-5.4); RED CELL DISTRIBUTION WIDTH 14.8 % (11.6-14.6)
[2021-05-23 06:57] LABS: CHLORIDE 106 mEq/L (98-107)
[2021-05-23 07:05] LABS: LDL CHOLESTEROL 69 mg/dL (5-100)
[2021-05-23 07:06] LABS: CREATINE KINASE 134 IU/L (26-192); HDL CHOLESTEROL 82 mg/dL (40-59)
[2021-05-23 07:55] VITALS: BP 98/47
[2021-05-23] MEDS ORDERED: HYDROCODONE/ACETAMINOPHEN 5/325MG TABLET PO PRN (09:15)
[2021-05-23 11:15] VITALS: BP 114/61
[2021-05-23 16:15] VITALS: BP 111/72
[2021-05-23] MEDS: PANTOPRAZOLE SODIUM 40 MG/VIAL IV SCH (18:36)
[2021-05-23 20:00] VITALS: BP 120/56
[2021-05-23 20:07] LABS: TOTAL IRON BINDING CAPACITY 241 ug/dL (250-450)
[2021-05-23 20:27] LABS: FOLIC ACID (FOLATE) SERUM 7.2 ng/mL (>5.38)
[2021-05-23 21:38] LABS: HEMOGLOBIN 7.2 g/dL (12.0-16.0)
[2021-05-23] MEDS ORDERED: POTASSIUM CHLORIDE 20MEQ TABLET SR PO NR (23:00)
[2021-05-24] VITALS (11 sets, daily range): BP systolic 107–142; BP diastolic 46–78
[2021-05-24 06:47] LABS: BASOPHILS % 0.4 % (0.0-2.0); EOSINOPHILS % 2.5 % (0.0-5.0); HEMATOCRIT. 28.2 % (36.0-48.0); HEMOGLOBIN. 9.5 g/dL (12.0-16.0); LYMPHOCYTES % 30.6 % (20.0-50.0); MEAN CORPUSCULAR HEMOGLOBIN 31.4 pg (28.0-32.0); MEAN CORPUSCULAR VOLUME 93.7 fL (81.0-99.0); MEAN PLATELET VOLUME 7.7 fl (7.4-10.4); MONOCYTES % 8.6 % (2.0-8.0); NEUTROPHILS % 57.9 % (40.0-76.0); PLATELET 231 x1000/uL (130-400); RED BLOOD CELL COUNT 3.01 mill/uL (4.2-5.4)
[2021-05-24] MEDS: DEXT 5%/0.9% NACL 1,000 ML IV SCH ×2 (06:48→21:06)
[2021-05-24 06:50] LABS: PROTHROMBIN TIME 10.3 sec (9.6-11.0)
[2021-05-24 07:23] LABS: CHLORIDE 108 mEq/L (98-107)
[2021-05-24] MEDS ORDERED: PROPOFOL 200MG/20ML VIAL IV ONE (10:04)
[2021-05-24] MEDS ORDERED: MIDAZOLAM HCL 5 MG/ML VIAL ONE (10:04)
[2021-05-24] MEDS ORDERED: LIDOCAINE HCL 1% 20ML VIAL (Pyxis) INJ ONE (10:05)
[2021-05-24] MEDS ORDERED: PANT40TA51 MT (11:21)
[2021-05-24] MEDS: PANTOPRAZOLE SODIUM 40 MG/VIAL IV SCH ×2 (11:25→17:38)
[2021-05-25] VITALS: BP 123/58
[2021-05-25 04:00] VITALS: BP 116/60
== END 2021-05-25 07:32 | disposition left against medical advice (07) | DRG 241 ==
LOC: ER 13:12 → 6WST 20:30 → EDBEDREQSVC 20:32 → EDBEDREQTM 20:32 → EDBEDREQ 20:32
PROVIDERS: ADMIT Internal Medicine; ATTEND Internal Medicine
PROC: 0DB78ZX Excision of Stomach, Pylorus, Via Natural or Artificial Opening Endoscopic, Diagnostic (ICD-10-PCS; principal; 2021-05-24)
PROC: 30233N1 Transfusion of Nonautologous Red Blood Cells into Peripheral Vein, Percutaneous Approach (ICD-10-PCS; 2021-05-24)
DX: K29.71 Gastritis, unspecified, with bleeding (principal); K85.90 Acute pancreatitis without necrosis or infection, unspecified; E44.0 Moderate protein-calorie malnutrition; E11.40 Type 2 diabetes mellitus with diabetic neuropathy, unspecified; E87.1 Hypo-osmolality and hyponatremia; K22.2 Esophageal obstruction; K57.11 Diverticulosis of small intestine without perforation or abscess with bleeding; K29.81 Duodenitis with bleeding; K22.6 Gastro-esophageal laceration-hemorrhage syndrome; E78.5 Hyperlipidemia, unspecified; Z53.29 Procedure and treatment not carried out because of patient's decision for other reasons; D50.0 Iron deficiency anemia secondary to blood loss (chronic); E87.5 Hyperkalemia; Z20.822 Contact with and (suspected) exposure to COVID-19; K44.9 Diaphragmatic hernia without obstruction or gangrene; E87.6 Hypokalemia; K86.1 Other chronic pancreatitis; K21.9 Gastro-esophageal reflux disease without esophagitis; K80.20 Calculus of gallbladder without cholecystitis without obstruction; I10 Essential (primary) hypertension; Z68.21 Body mass index [BMI] 21.0-21.9, adult; Z87.11 Personal history of peptic ulcer disease; Z82.49 Family history of ischemic heart disease and other diseases of the circulatory system; Z79.899 Other long term (current) drug therapy; I25.2 Old myocardial infarction; Z72.0 Tobacco use
CPT/HCPCS: 36415; 71045; 74176; 76700; 80048; 80053; 80061; 80076; 80305; 80320; 81003; 82270; 82550; 82607; 82728; 82746; 83540; 83550; 84443; 84484; 85018; 85025; 85044; 86850; 86900; 86920; 87426; 88305; 88312; 88313; 93005; 99285; C1893; C9113; J2250; J2270; J2405; J2704; J3490; J7030; J7040; J7042; J7070; P9016; G0480

== ENCOUNTER 2021-08-17 01:02 | Inpatient (IN) | payer MEDICARE, MEDICAID ==
[~2021-08-17] VITALS: Ht 167.6 cm; Wt 63.3 kg
[~2021-08-17 01:02] MED LIST changes: +AMYL1CAP59 PO; +CHOL500051 PO; +CYPR4SYR PO; +GLIP5TAB12 PO; +naproxen
[2021-08-17] MEDS ORDERED: MORPHINE SULFATE 4 MG/ML CPJ (NOT FOR IM USE) IV STA (01:25)
[2021-08-17 03:05] LABS: BASOPHILS % 0.6 % (0.0-2.0); EOSINOPHILS % 0.5 % (0.0-5.0); HEMATOCRIT. 34.1 % (36.0-48.0); HEMOGLOBIN. 11.4 g/dL (12.0-16.0); LYMPHOCYTES % 21.7 % (20.0-50.0); MEAN CORPUSCULAR HEMOGLOBIN 32.1 pg (28.0-32.0); MEAN CORPUSCULAR VOLUME 96.4 fL (81.0-99.0); MEAN PLATELET VOLUME 7.8 fl (7.4-10.4); MONOCYTES % 7.6 % (2.0-8.0); NEUTROPHILS % 69.6 % (40.0-76.0); PLATELET 332 x1000/uL (130-400); RED BLOOD CELL COUNT 3.54 mill/uL (4.2-5.4)
[2021-08-17 03:13] LABS: CHLORIDE 105 mEq/L (98-107)
[2021-08-17] MEDS ORDERED: MORPHINE SULFATE 4 MG/ML CPJ (NOT FOR IM USE) IV NR (04:30)
[2021-08-17 10:35] VITALS: BP 131/68
[2021-08-17] MEDS ORDERED: NALOXONE HCL 0.4MG/ML VIAL IV PRN (11:00)
[2021-08-17] MEDS ORDERED: ACETAMINOPHEN 325MG TABLET PO PRN ×2 (11:00)
[2021-08-17] MEDS ORDERED: DOCUSATE SODIUM 100MG CAPSULE PO PRN (11:00)
[2021-08-17] MEDS ORDERED: LORAZEPAM 0.5MG TABLET PO PRN (11:00)
[2021-08-17] MEDS ORDERED: CLONIDINE 0.1MG TABLET PO PRN (11:00)
[2021-08-17] MEDS ORDERED: IPRATROPIUM/ALBUTEROL 0.5-3(2.5)MG/3ML NEB HHN PRN (11:00)
[2021-08-17] MEDS ORDERED: ONDANSETRON HCL 4MG/2ML INJ IV PRN (11:00)
[2021-08-17 12:00] VITALS: BP 146/77
[2021-08-17] MEDS ORDERED: PREG50CA MT (12:20)
[2021-08-17] MEDS: HYDROCODONE/ACETAMINOPHEN 5/325MG TABLET PO PRN ×2 (13:40→23:50)
[2021-08-17 14:24] LABS: CLARITY URINE CLEAR (CLEAR); COLOR URINE YELLOW (YELLOW); KETONES URINE NEGATIVE (NEGATIVE); LEUKOCYTE ESTERASE URINE NEGATIVE (NEGATIVE); NITRITE URINE NEGATIVE (NEGATIVE); OCCULT BLOOD URINE NEGATIVE (NEGATIVE); PROTEIN URINE NEGATIVE (NEGATIVE); UROBILINOGEN URINE 0.2 E.U./dL (0.2-1.0)
[2021-08-17 14:46] LABS: *AMPHETAMINES SCREEN URINE NEGATIVE (NEGATIVE); *BARBITURATES SCREEN URINE NEGATIVE (NEGATIVE); *BENZODIAZEPINES SCREEN URINE NEGATIVE (NEGATIVE); *COCAINE SCREEN URINE NEGATIVE (NEGATIVE); CANNABINOID URINE SCREEN PRESUMTIVE POSITIVE (NEGATIVE); METHADONE URINE SCREEN NEGATIVE (NEGATIVE); OPIATES URINE SCREEN PRESUMTIVE POSITIVE (NEGATIVE); PHENCYCLIDINE URINE SCREEN NEGATIVE (NEGATIVE)
[2021-08-17 16:00] VITALS: BP 130/78
[2021-08-17] MEDS: PANTOPRAZOLE SODIUM 40 MG/VIAL IV SCH (17:40)
[2021-08-17] MEDS: PREGABALIN 50 MG CAPSULE PO SCH (17:40)
[2021-08-17 20:00] VITALS: BP 124/67
[2021-08-18] VITALS: BP 119/73
[2021-08-18 04:25] VITALS: BP 142/91
[2021-08-18] MEDS: HYDROCODONE/ACETAMINOPHEN 5/325MG TABLET PO PRN (05:25)
[2021-08-18 07:47] VITALS: BP 130/75
[2021-08-18] MEDS: PREGABALIN 50 MG CAPSULE PO SCH ×3 (08:57→16:56)
[2021-08-18] MEDS: PANTOPRAZOLE SODIUM 40 MG/VIAL IV SCH (08:57)
[2021-08-18 12:00] VITALS: BP 128/78
[2021-08-18] MEDS ORDERED: LORAZEPAM 2MG/ML CPJ IV SCH (13:30)
[2021-08-18] MEDS ORDERED: REGADENOSON 0.4 MG/5 ML IV NR (15:30)
[2021-08-18 15:31] LABS: BASOPHILS % 0.1 % (0.0-2.0); EOSINOPHILS % 0.7 % (0.0-5.0); HEMATOCRIT. 32.3 % (36.0-48.0); HEMOGLOBIN. 10.6 g/dL (12.0-16.0); LYMPHOCYTES % 17.2 % (20.0-50.0); MEAN CORPUSCULAR HEMOGLOBIN 32.5 pg (28.0-32.0); MEAN CORPUSCULAR VOLUME 98.6 fL (81.0-99.0); MEAN PLATELET VOLUME 8.3 fl (7.4-10.4); MONOCYTES % 9.4 % (2.0-8.0); NEUTROPHILS % 72.6 % (40.0-76.0); PLATELET 287 x1000/uL (130-400); RED BLOOD CELL COUNT 3.28 mill/uL (4.2-5.4); RED CELL DISTRIBUTION WIDTH 15.5 % (11.6-14.6)
[2021-08-18 16:37] VITALS: BP 145/88
[2021-08-18 20:00] VITALS: BP 118/79
[2021-08-19] VITALS: BP 142/79
[2021-08-19] MEDS: HYDROCODONE/ACETAMINOPHEN 5/325MG TABLET PO PRN ×3 (00:18→23:09)
[2021-08-19 04:00] VITALS: BP 103/72
[2021-08-19 06:58] LABS: INR 0.9; PARTIAL THROMBOPLASTIN TIME 29.3 sec (23.4-31.0); PROTHROMBIN TIME 10.2 sec (9.6-11.0)
[2021-08-19 07:00] LABS: BASOPHILS % 0.2 % (0.0-2.0); EOSINOPHILS % 1.5 % (0.0-5.0); HEMATOCRIT. 31.7 % (36.0-48.0); HEMOGLOBIN. 10.6 g/dL (12.0-16.0); LYMPHOCYTES % 26.9 % (20.0-50.0); MEAN CORPUSCULAR HEMOGLOBIN 32.5 pg (28.0-32.0); MEAN CORPUSCULAR VOLUME 97.6 fL (81.0-99.0); MEAN PLATELET VOLUME 8.5 fl (7.4-10.4); MONOCYTES % 7.5 % (2.0-8.0); NEUTROPHILS % 63.9 % (40.0-76.0); PLATELET 267 x1000/uL (130-400); RED BLOOD CELL COUNT 3.24 mill/uL (4.2-5.4); RED CELL DISTRIBUTION WIDTH 15.7 % (11.6-14.6)
[2021-08-19 07:15] LABS: CHLORIDE 105 mEq/L (98-107)
[2021-08-19] MEDS: PANTOPRAZOLE SODIUM 40 MG/VIAL IV SCH (09:00)
[2021-08-19] MEDS: PREGABALIN 50 MG CAPSULE PO SCH ×3 (10:58→18:08)
[2021-08-19 11:27] VITALS: BP 126/78
[2021-08-19] MEDS ORDERED: REGADENOSON 0.4 MG/5 ML IV ONE (11:46)
[2021-08-19 16:00] VITALS: BP 110/68
[2021-08-19 20:00] VITALS: BP 107/77
[2021-08-20] VITALS: BP 103/74
[2021-08-20 04:00] VITALS: BP 109/73
[2021-08-20 08:00] VITALS: BP 138/76
[2021-08-20] MEDS: PANTOPRAZOLE SODIUM 40 MG/VIAL IV SCH (09:54)
[2021-08-20] MEDS: PREGABALIN 50 MG CAPSULE PO SCH ×3 (09:54→17:18)
[2021-08-20 12:00] VITALS: BP 123/77
[2021-08-20 16:00] VITALS: BP 129/87
== END 2021-08-20 20:33 | disposition left against medical advice (07) | DRG 206 ==
LOC: ER 01:02 → 7WST 04:41
PROVIDERS: ADMIT Internal Medicine; ATTEND Internal Medicine
DX: M94.0 Chondrocostal junction syndrome [Tietze] (principal); K86.1 Other chronic pancreatitis; F10.10 Alcohol abuse, uncomplicated; D64.9 Anemia, unspecified; K76.0 Fatty (change of) liver, not elsewhere classified; E78.5 Hyperlipidemia, unspecified; M79.604 Pain in right leg; M79.605 Pain in left leg; E11.40 Type 2 diabetes mellitus with diabetic neuropathy, unspecified; Y90.9 Presence of alcohol in blood, level not specified; E66.01 Morbid (severe) obesity due to excess calories; K44.9 Diaphragmatic hernia without obstruction or gangrene; K29.80 Duodenitis without bleeding; Z20.822 Contact with and (suspected) exposure to COVID-19; M48.00 Spinal stenosis, site unspecified; I10 Essential (primary) hypertension; Z79.899 Other long term (current) drug therapy; Z79.84 Long term (current) use of oral hypoglycemic drugs; Z68.22 Body mass index [BMI] 22.0-22.9, adult; Z72.0 Tobacco use; K22.2 Esophageal obstruction; Z71.3 Dietary counseling and surveillance
CPT/HCPCS: 36415; 71045; 72148; 78452; 80048; 80053; 80305; 80320; 81003; 82962; 83735; 83880; 84484; 84702; 85025; 87426; 93005; 93017; 93306; 99285; A9500; C9113; J2060; J2270; J2405; J2785; G0480

== ENCOUNTER 2021-09-09 12:53 | Inpatient (IN) | payer MEDICARE, MEDICAID ==
[~2021-09-09] VITALS: Ht 170.2 cm; Wt 62.7 kg
[~2021-09-09 12:53] MED LIST changes: -AMYL1CAP59 PO; -CHOL500051 PO; -CYAN-50 PO; -CYPR4SYR PO; -FOLI-43 PO; -GLIP5TAB12 PO; +PREG50CA MT; -naproxen
[2021-09-09] MEDS ORDERED: ACETAMINOPHEN 325MG TABLET PO STA (13:42)
[2021-09-09] MEDS ORDERED: CEFTRIAXONE 1 G PREMIX 50 ML IV ONE (13:45)
[2021-09-09 14:14] LABS: BASOPHILS % 0.7 % (0.0-2.0); EOSINOPHILS % 0.8 % (0.0-5.0); HEMATOCRIT. 35.7 % (36.0-48.0); HEMOGLOBIN. 11.6 g/dL (12.0-16.0); LYMPHOCYTES % 28.4 % (20.0-50.0); MEAN CORPUSCULAR HEMOGLOBIN 31.3 pg (28.0-32.0); MEAN CORPUSCULAR VOLUME 95.9 fL (81.0-99.0); MEAN PLATELET VOLUME 8.8 fl (7.4-10.4); MONOCYTES % 7.4 % (2.0-8.0); NEUTROPHILS % 62.7 % (40.0-76.0); PLATELET 328 x1000/uL (130-400); RED BLOOD CELL COUNT 3.72 mill/uL (4.2-5.4); RED CELL DISTRIBUTION WIDTH 15.5 % (11.6-14.6)
[2021-09-09 14:22] LABS: CHLORIDE 108 mEq/L (98-107)
[2021-09-09] MEDS ORDERED: CLONIDINE 0.1MG TABLET PO PRN (20:15)
[2021-09-09] MEDS ORDERED: DIPHENHYDRAMINE 50MG/ML VIAL IV PRN (20:15)
[2021-09-09] MEDS ORDERED: CEFTRIAXONE 1 G PREMIX 50 ML IV SCH (20:15)
[2021-09-09] MEDS ORDERED: ACETAMINOPHEN 325MG TABLET PO PRN (20:15)
[2021-09-09] MEDS ORDERED: IPRATROPIUM/ALBUTEROL 0.5-3(2.5)MG/3ML NEB HHN PRN (20:15)
[2021-09-09] MEDS ORDERED: ONDANSETRON HCL 4MG/2ML INJ IV PRN (20:15)
[2021-09-09] MEDS ORDERED: DEXTROSE 50% WATER 50ML SYRINGE IV PRN (21:45)
[2021-09-09 21:50] VITALS: BP 129/75
[2021-09-09] MEDS: SODIUM CHLORIDE 0.9% 1,000 ML IV SCH (22:28)
[2021-09-10] VITALS: BP 138/68
[2021-09-10 04:00] VITALS: BP 124/65
[2021-09-10] MEDS: BLOOD SUGAR DIAGNOSTIC STRIP TEST SCH ×4 (06:45→17:16)
[2021-09-10 08:00] VITALS: BP 117/90
[2021-09-10] MEDS: INSULIN LISPRO 100 UNITS/ML SUBCUT SCH ×3 (08:10→17:15)
[2021-09-10 08:19] LABS: BASOPHILS % 0.4 % (0.0-2.0); HEMATOCRIT. 31.8 % (36.0-48.0); HEMOGLOBIN. 10.6 g/dL (12.0-16.0); LYMPHOCYTES % 15.4 % (20.0-50.0); MEAN CORPUSCULAR HEMOGLOBIN 31.9 pg (28.0-32.0); MEAN CORPUSCULAR VOLUME 95.6 fL (81.0-99.0); MEAN PLATELET VOLUME 9.1 fl (7.4-10.4); MONOCYTES % 7.3 % (2.0-8.0); NEUTROPHILS % 75.9 % (40.0-76.0); PLATELET 288 x1000/uL (130-400); RED BLOOD CELL COUNT 3.32 mill/uL (4.2-5.4); RED CELL DISTRIBUTION WIDTH 15.2 % (11.6-14.6)
[2021-09-10 08:32] LABS: CHLORIDE 109 mEq/L (98-107)
[2021-09-10] MEDS ORDERED: CEFTRIAXONE 1,000 MG in DEXTROSE 5% WATER 50 ML IV SCH (09:00)
[2021-09-10] MEDS ORDERED: HYDROCODONE/ACETAMINOPHEN 5/325MG TABLET PO PRN ×2 (10:15→14:45)
[2021-09-10] MEDS ORDERED: NALOXONE HCL 0.4MG/ML VIAL IV PRN (10:15)
[2021-09-10] MEDS ORDERED: BENZONATATE 100MG CAPSULE PO PRN (11:00)
[2021-09-10 12:00] VITALS: BP 149/75
[2021-09-10] MEDS ORDERED: FLUTICASONE PROPIONATE 50MCG/SPRAY BOTTLE BOTHNSTRLS SCH (12:00)
[2021-09-10 12:33] LABS: CREATINE KINASE 90 IU/L (26-192)
[2021-09-10] MEDS: SODIUM CHLORIDE 0.9% 1,000 ML IV SCH (13:08)
[2021-09-10] MEDS ORDERED: FLUT9.9S BOTHNSTRLS (14:48)
[2021-09-10] MEDS ORDERED: BENZ100C86 PO (14:48)
[2021-09-10] MEDS ORDERED: GUAI600T44 PO (14:48)
[2021-09-10 15:22] VITALS: BP 142/94
[2021-09-10 16:00] VITALS: BP 142/94
[2021-09-10] MEDS ORDERED: GUAIFENESIN 600MG ER TABLET PO SCH (21:00)
== END 2021-09-10 17:45 | disposition home or self-care (01) | DRG 392 ==
LOC: ER 12:53 → 7WST 19:11 → ENRESERV 19:45 → 7WST 21:58
PROVIDERS: ADMIT Internal Medicine; ATTEND Internal Medicine
DX: K21.9 Gastro-esophageal reflux disease without esophagitis (principal); E87.2 Acidosis; K86.1 Other chronic pancreatitis; E78.5 Hyperlipidemia, unspecified; D64.9 Anemia, unspecified; E11.40 Type 2 diabetes mellitus with diabetic neuropathy, unspecified; E66.01 Morbid (severe) obesity due to excess calories; I10 Essential (primary) hypertension; K29.80 Duodenitis without bleeding; K76.0 Fatty (change of) liver, not elsewhere classified; Y90.9 Presence of alcohol in blood, level not specified; F10.20 Alcohol dependence, uncomplicated; K44.9 Diaphragmatic hernia without obstruction or gangrene; K22.2 Esophageal obstruction; Z20.822 Contact with and (suspected) exposure to COVID-19; R74.01 Elevation of levels of liver transaminase levels; Z68.21 Body mass index [BMI] 21.0-21.9, adult; Z79.84 Long term (current) use of oral hypoglycemic drugs; Z72.0 Tobacco use
CPT/HCPCS: 36415; 71045; 80048; 80053; 80076; 82550; 82962; 83605; 84145; 84484; 85025; 85379; 87426; 93005; 93970; 99285; J0696; J1200; J7060

== ENCOUNTER 2022-01-31 12:50 | Emergency (ER) | payer MEDICARE, MEDICAID ==
[~2022-01-31] VITALS: Ht 170.2 cm; Wt 49.0 kg
[~2022-01-31 12:50] MED LIST changes: +BENZ100C86 PO; +FLUT9.9S BOTHNSTRLS; +GUAI600T44 PO
[2022-01-31 19:12] LABS: BASOPHILS % 0.6 % (0.0-2.0); EOSINOPHILS % 3.2 % (0.0-5.0); HEMATOCRIT. 31.2 % (36.0-48.0); LYMPHOCYTES % 31.9 % (20.0-50.0); MEAN CORPUSCULAR HEMOGLOBIN 32.2 pg (28.0-32.0); MEAN CORPUSCULAR VOLUME 100.9 fL (81.0-99.0); MEAN PLATELET VOLUME 9.1 fl (7.4-10.4); MONOCYTES % 7.5 % (2.0-8.0); NEUTROPHILS % 56.8 % (40.0-76.0); PLATELET 258 x1000/uL (130-400); RED BLOOD CELL COUNT 3.09 mill/uL (4.2-5.4); RED CELL DISTRIBUTION WIDTH 17.7 % (11.6-14.6)
[2022-01-31 19:22] LABS: CHLORIDE 120 mEq/L (98-107); D-DIMER 1.03 mg/L FEU (<0.50); PROTHROMBIN TIME 10.5 sec (9.6-11.0)
[2022-01-31 23:39] VITALS: BP 115/78
== END 2022-01-31 23:40 | disposition home or self-care (01) ==
LOC: ER 12:50
DX: R60.0 Localized edema (principal); E11.9 Type 2 diabetes mellitus without complications; Z79.899 Other long term (current) drug therapy
CPT/HCPCS: 36415; 80053; 83880; 85025; 85379; 93970; 99284